=== PATIENT | male | born 1985 | race Two or more races ===

== ENCOUNTER 2021-04-30 18:57 | Inpatient (IN) | payer MEDICAID, OTHER ==
[~2021-04-30] VITALS: Ht 180.3 cm; Wt 69.4 kg
--- NOTE | 2021-04-30 19:35 | NUR ---
LIANET 889 FROM HOME FOR C/O GENERALIZED BODY PAIN, WEAKNESS AND DIARRHEA X 3 DAYS. PATIENT ALERT AND ORIENTED X3. AMBULATORY WITH NON LABORED BREATHING. PLACED IN BED 08 ON A MONITOR.
[2021-04-30] MEDS ORDERED: MORPHINE SULFATE INJ 4 MG/ML DISP.SYRIN ONE (19:53)
[2021-04-30] MEDS ORDERED: ONDANSETRON HCL/PF 4 MG/2 ML VIAL ONE (19:53)
[2021-04-30] MEDS ORDERED: ONDANSETRON HCL/PF 4 MG/2 ML VIAL IVP ONE (20:00)
[2021-04-30] MEDS ORDERED: MORPHINE SULFATE INJ 2 MG/ML DISP.SYRIN IV ONE (20:00)
[2021-04-30] MEDS ORDERED: IV NS 0.9% 1,000 ML BAG IV ONE ×2 (20:00→21:00)
--- NOTE | 2021-04-30 20:07 | NUR ---
COOLER DELIVERER @ BEDSIDE
--- NOTE | 2021-04-30 20:09 | NUR ---
URINE COLLECTED AND SENT TO LAB
[2021-04-30 20:31] LABS: BASOPHILS % (AUTO) 0.4 % (0.0-2.0); HEMATOCRIT 40 % (39-51); HEMOGLOBIN 13.5 g/dL (13.5-17.5); LYMPHOCYTES % (AUTO) 13.1 % (20.0-44.0); MEAN CORPUSCULAR HGB CONC 34 g/dl (31.0-36.0); MEAN CORPUSCULAR VOLUME 92 fL (80-96); MONOCYTES # (AUTO) 0.5 K/uL (0.1-1.30); MONOCYTES % (AUTO) 6.8 % (2.0-12.0); NEUTROPHILS # (AUTO) 6.3 K/uL (1.8-8.9); NEUTROPHILS % (AUTO) 79.7 % (43.0-81.0); PLATELET COUNT (AUTO) 160 K/uL (150-450); RED BLOOD CELL COUNT(AUTO) 4.31 MIL/uL (4.5-6.0); WHITE BLOOD COUNT (AUTO) 7.9 K/uL (4.3-11.0)
[2021-04-30 20:32] LABS: BILIRUBIN,URINE SMALL (NEGATIVE); COLOR,URINE YELLOW (YELLOW); LEUKOCYTE ESTERASE ,URINE NEGATIVE (NEGATIVE); NITRITE, URINE NEGATIVE (NEGATIVE); PROTEIN,URINE 30 mg/dl (NEGATIVE); UGLUCOSE NEGATIVE (NEGATIVE); UROBILINOGEN,URINE 0.2 EU/dL (0.2)
[2021-04-30 20:43] LABS: BACTERIA,URINE 1+ /HPF (None Seen); RBC,URINE 21-50 /HPF (0-2); SQUAMOUS EPITHELIAL CELL,UR 0-2 /HPF (None Seen)
[2021-04-30 20:45] LABS: CALCIUM, SERUM 8.5 mg/dL (8.5-10.1); CREATININE 1.2 mg/dL (0.6-1.3); POTASSIUM 3.5 mmol/L (3.5-5.1)
[2021-04-30 20:58] LABS: ALBUMIN 3.1 g/dL (3.4-5.0); BILIRUBIN,DIRECT 0.3 mg/dL (0.0-0.2); BILIRUBIN,TOTAL 1.5 mg/dL (0.2-1.0); TOTAL PROTEIN, SERUM 7.3 g/dL (6.4-8.2)
[2021-04-30] MEDS ORDERED: PIPERACILLIN /TAZOBACTAM 3.375 G in IV D5W 50 ML IV ONE (21:00)
[2021-04-30 21:25] LABS: ACETAMINOPHEN < 10 ug/ml (10-30); ALCOHOL, BLOOD < 3 mg/dL (0-0)
[2021-04-30] MEDS ORDERED: PIPERACILLIN /TAZOBACTAM 3.375 G VIAL IV ONE (21:34)
--- NOTE | 2021-04-30 21:45 | NUR ---
MRSA SWAB COLLECTED AND SENT TO LAB. PATIENT'S BELONGINGS LIST DONE.
[2021-04-30 21:57] LABS: CSF PROTEIN 38.4 mg/dL (15-45)
[2021-05-01] MEDS ORDERED: MAGNESIUM HYDROXIDE 30 ML UDC PO PRN (00:30)
[2021-05-01] MEDS ORDERED: Z GUARD REMEDY 2 OZ OINT TP PRN (00:30)
[2021-05-01] MEDS ORDERED: ZOLPIDEM TARTRATE 5 MG TABLET PO PRN (00:30)
[2021-05-01] MEDS ORDERED: IV D5/0.45 NACL 1,000 ML IV PRN (00:30)
[2021-05-01] MEDS ORDERED: ONDANSETRON HCL/PF 4 MG/2 ML VIAL IVP PRN (00:30)
[2021-05-01] MEDS ORDERED: HYDROCODONE/APAP 5/325MG TABLET PO PRN (00:30)
[2021-05-01] MEDS ORDERED: MAG HYDROX/AL HYDROX/SIMETH 30 ML UDC PO PRN (00:30)
[2021-05-01] MEDS ORDERED: ACETAMINOPHEN 325 MG TABLET PO PRN (00:30)
--- NOTE | 2021-05-01 00:39 | NUR ---
REPORT GIVEN TO JOSUE REYES
--- NOTE | 2021-05-01 00:40 | NUR ---
TRANSFERRING PT TO 103
[2021-05-01 00:42] VITALS: BP 112/78
--- NOTE | 2021-05-01 00:42 | NUR ---
SENIOR TRAINING AND DEVELOPMENT REP NOTE RECEIVED PATIENT VIA GURNEY. AMBULATED TO BED WITH STEADY GAIT. A/OX4. TOLERATING ROOM AIR. RESPIRATIONS ARE EVEN AND UNLABORED. NO S/SS OB NOTED. C/O PAIN, REQUESTING SOMETHING TO DRINK. INFORMED PATIENT HE IS ON CLEAR LIQUID DIET, PATIENT UNDERSTOOD. IN NO APPARENT DISTRESS.IV ACCESS IN RIGHT HAND #20 PATENT AND SALINE LOCKED.[employer] ADVISOR OBTAINED VITAL SIGNS, AND COMPLETED BELONGING LIST. PHYSIAL ASSESSMENT COMPLETED AT THIS TIME. PATENT STATES HE HAS NO SKIN ISSUES AT THIS TIME. PATIENT ALSO STATES HE DID NOT BRING HIS HIV MEDICATIONS, THEY WERE STOLEN. BED IS LOW AND LOCKED, HOB ELEVATED IN SEMI FOWLERS,S ISDE RIALS UP X2, SHARI LIGHT WITHIN REACH. INFORMED ON HOW TO USE.
[2021-05-01] MEDS: MORPHINE SULFATE INJ 2 MG/ML DISP.SYRIN IV PRN ×2 (02:04→06:14)
[2021-05-01 04:00] VITALS: BP 99/68
[2021-05-01] MEDS ORDERED: PIPERACILLIN /TAZOBACTAM 3.375 G VIAL IV ONE (05:58)
[2021-05-01] MEDS ORDERED: ZOSYN IVPB 3.375 G in IV D5W 50ml IV ONE (06:00)
[2021-05-01] MEDS ORDERED: PANTOPRAZOLE 40 MG TABLET.DR PO SCH (07:30)
--- NOTE | 2021-05-01 07:30 | NUR ---
MS RN OPENING NOTES RECEIVED PATIENT IN BED, AWAKE, A&O X4, ABLE O MAKE NEEDS KNOWN. ON RA TOLERATING WELL, NO S/SX OF ACUTE DISTRESS NOTED. IV ACCESS ON R HAND G#20, PATENT AND FLUSHES WELL. ONGOING IVF OF D5 1/2 NS AT 75 CC/HR, INFUSING WELL. NO S/SX OF INFILTRATION NOTED. SAFETY PRECAUTIONS IN PLACE: BED ON LOWEST LOCKED POSITION, SIDE RAILS UP X 2, CALL LIGHT WITHIN EASY REACH. WILL CONTINUE TO MONITOR ACCORDINGLY.
--- NOTE | 2021-05-01 07:35 | NUR ---
RN NOTE RESTING IN BED. A/OX4. REMAINS TOLERATING ROOM AIR. NO RESP DISTRESS,. MANAGED PAIN WITH MORPHINE. RIGHT HAND #20 RUNNING D51/2NS@75. HAT PLACED IN TOILET FOR PATIENT TO COLLECT STOOL. BED REMAIN IS LOW AND LOCKED, HOB ELEVATED IN SEMI FOWLERS,SIDE RIALS UP X2, SHARI LIGHT WITHIN REACH. ENDORSE TO ONCOMING SHIFT.
[2021-05-01] MEDS ORDERED: DARU1TAB3 PO (08:40)
--- NOTE | 2021-05-01 09:40 | NUR ---
RN NOTES PATIENT STARTED YELLING TO STAFF. VERBALIZED HE WANTS TO GO HOME BUT DOESN'T WANT TO SIGN AMA FORM. CODE STEIN ACTIVATED, PATIENT IS A HARM TO OTHERS. LEFT UNIT ASSISTED BY SECURITY ON DUTY. CHARGE NURSE AWARE, MADE AWARE.
[2021-05-01] MEDS ORDERED: PIPERACILLIN /TAZOBACTAM 4.5 G in IV D5W 50 ML IV SCH (12:00)
[2021-05-01] MEDS ORDERED: PIPERACILLIN /TAZOBACTAM 3.375 G in IV D5W 100 ML IV SCH (13:00)
[2021-05-05 14:07] LABS: *CRYPTOCOCCUS AG, CSF Negative (Negative)
== END 2021-05-01 09:30 | disposition left against medical advice (07) | DRG 249 ==
LOC: ER 19:01 → MEDSG1 05-01 00:28
DX: K52.9 Noninfective gastroenteritis and colitis, unspecified (principal); E44.1 Mild protein-calorie malnutrition; E87.1 Hypo-osmolality and hyponatremia; E88.09 Other disorders of plasma-protein metabolism, not elsewhere classified; N20.0 Calculus of kidney; Z20.822 Contact with and (suspected) exposure to COVID-19; R51.9 Headache, unspecified; E80.6 Other disorders of bilirubin metabolism; R82.6 Abnormal urine levels of substances chiefly nonmedicinal as to source; Z68.21 Body mass index [BMI] 21.0-21.9, adult
CPT/HCPCS: 36415; 70450-TC; 71045-TC; 80048-TC; 80076-TC; 81001; 82945-TC; 83605-TC; 83690-TC; 84155-TC; 85025-TC; 85730-TC; 86592; 87040-TC; 87070-TC; 87081-TC; 87899; 89051-TC; C9803; G0378; G0480; J2270; J2405; J2543; J3490; J7030; J7060; U0003